=== PATIENT | female | born 1945 | race Caucasian/White ===

== ENCOUNTER 2019-06-10 09:14 | Emergency (ER) | payer OTHER ==
[~2019-06-10] VITALS: Ht 162.6 cm; Wt 68.0 kg
[2019-06-10] MEDS ORDERED: MAGNESIUM/ALUMINUM HYDROXIDE/SIMETHICONE 30ML UDC PO STA (10:06)
[2019-06-10] MEDS ORDERED: KETOROLAC 30MG/ML VIAL IV STA (10:06)
[2019-06-10] MEDS ORDERED: VISCOUS LIDOCAINE 2% 15 ML UDC PO STA (10:06)
[2019-06-10] MEDS ORDERED: DICYCLOMINE 10 MG/5 ML ORAL SYR PO STA (10:06)
[2019-06-10] MEDS ORDERED: ONDANSETRON HCL 4MG/2ML INJ IV STA (10:06)
[2019-06-10] MEDS ORDERED: SODIUM CHLORIDE 0.9% 1,000 ML IV ONE (10:06)
[2019-06-10 11:04] LABS: HEMATOCRIT. 38.6 % (36.0-48.0); HEMOGLOBIN. 12.9 g/dL (12.0-16.0); MEAN CORPUSCULAR HEMOGLOBIN 29.3 pg (28.0-32.0); MEAN CORPUSCULAR VOLUME 87.4 fL (81.0-99.0); RED BLOOD CELL COUNT 4.41 mill/uL (4.2-5.4); RED CELL DISTRIBUTION WIDTH 14.7 % (11.6-14.6)
[2019-06-10 11:11] LABS: CHLORIDE 109 mEq/L (98-107)
[2019-06-10 11:32] LABS: PLATELET 217 x1000/uL (130-400)
[2019-06-10 11:33] LABS: MEAN PLATELET VOLUME 8.7 fl (7.4-10.4)
[2019-06-10 11:36] LABS: PLATELET ESTIMATE NORMAL
[2019-06-10 12:57] VITALS: BP 137/70
== END 2019-06-10 12:58 | disposition home or self-care (01) ==
LOC: ER 09:14
DX: R10.9 Unspecified abdominal pain (principal); R11.0 Nausea; I10 Essential (primary) hypertension
CPT/HCPCS: 36415; 74176; 80053; 83690; 85025; 96374; 96375; 99284; J1885; J2405; J7030